=== PATIENT | female | born 1960 | race Caucasian/White ===

== ENCOUNTER → 2023-01-16 | Outpatient (CLI) | payer OTHER | END | disposition home or self-care (01) | LOC: LAB SHORT 14:38 → LAB 14:38 | PROVIDERS: Physician Assistant | DX: G89.4 Chronic pain syndrome (principal) | CPT/HCPCS: G0480 ==

== ENCOUNTER 2023-04-03 09:23 | Day surgery (SDC) | payer OTHER ==
[~2023-04-03] VITALS: Ht 160 cm; Wt 89.5 kg
[2023-04-03] VITALS (21 sets, daily range): BP systolic 138–169; BP diastolic 44–863
[~2023-04-03 09:23] MED LIST: ATEN100 PO; DICL75ER PO; HYDACE10B PO; HYOS.125 SL; NORT75 PO; OMEP20ER PO; PRAV20 PO; SUMA25 PO; VALA500 PO; ZOLP10 PO
[2023-04-03 11:36] LABS: Bun/Creatinine Ratio 23.6 (12.0-20.0); Calcium, Blood 8.7 mg/dL (8.5-10.1); Creatinine, Blood 0.59 mg/dL (0.40-1.00); Potassium, Blood 3.9 mmol/L (3.5-5.5)
--- NOTE | 2023-04-03 19:31 | NUR ---
SHIFT SUMMARY POD0 VAG HYSTER WITH A&P REPAIR, A/OX4, VSS, TOLERATING PO, AMBULATING INDEPENDENTLY IN THE ROOM, MODERATE AMOUNT OF BLOOD ON HER FIRST PEDRO PAD BUT HAS HAD NO DRAINAGE SINCE. NO ACUTE EVENTS THIS SHIFT, CALL LIGHT IN REACH.
[2023-04-03] MEDS ORDERED: ATEN100 PO (19:53)
[2023-04-04 03:25] VITALS: BP 142/66
--- NOTE | 2023-04-04 04:09 | NUR ---
SHIFT SUMMARY NO ACUTE CHANGES. PT COMPLAINS OF LOWER ABD CRAMPING. TORADOL/NORCO + KPAD FOR PAIN MANAGEMENT. SMALL AMOUNT OF VAGINAL BLEEDING ON PEDRO PADS. PT PASSING FLATUS. DC DC'D THIS AM AND AWAITING FIRST SPONTANEOUS VOID. INDEP IN ROOM. VSS. PT USES CALL LIGHT APPROPRIATELY.
[2023-04-04 05:57] LABS: BASOPHILS ABSOLUTE AUTO 0.01 K/mm3 (0.00-0.23); BASOPHILS PERCENT AUTO 0 % (0-2); EOSINOPHILS PERCENT AUTO 0 % (0-6); Hematocrit 36.2 % (33.0-51.0); Hemoglobin 12.4 g/dL (11.5-16.0); IMMATURE GRAN ABSOLUTE AUTO 0.05 K/mm3 (0.00-0.10); IMMATURE GRAN PERCENT AUTO 0 % (0-1); LYMPHOCYTES ABSOLUTE AUTO 1.85 K/mm3 (0.84-5.20); LYMPHOCYTES PERCENT AUTO 16 % (21-46); MONOCYTES ABSOLUTE AUTO 0.65 K/mm3 (0.16-1.47); MONOCYTES PERCENT AUTO 6 % (4-13); Mean Corpuscular HGB 28.9 pg (26.0-34.0); Mean Corpuscular HGB Conc 34.3 g/dL (31.5-36.5); Mean Corpuscular Volume 84 fL (80-100); Mean Platelet Volume 9.1 fL (9.1-12.4); NEUTROPHILS ABSOLUTE AUTO 9.28 K/mm3 (1.96-9.15); NEUTROPHILS PERCENT AUTO 78 % (41-73); Platelet Count 327 K/mm3 (150-400); RDW Standard Deviation 40.1 fL (35.1-46.3); Red Blood Cell Count 4.29 M/mm3 (3.80-5.20); White Blood Cell Count 11.84 K/mm3 (4.00-11.30)
[2023-04-04 07:31] VITALS: BP 137/69
[2023-04-04] MEDS ORDERED: HYDR1TAB94 PO (11:12)
== END 2023-04-04 15:31 | disposition home or self-care (01) ==
LOC: ORSCMMR 09:23 → ORD 11:00 → ORSCMMR 11:00 → SURS 15:14 → ORSCMMR 15:14 → SURS 04-04 15:31
PROVIDERS: Obstetrics & Gynecology
PROC: 0JQC0ZZ Repair Pelvic Region Subcutaneous Tissue and Fascia, Open Approach (ICD-10-PCS; principal; 2023-04-03 11:00)
PROC: 0UT97ZZ Resection of Uterus, Via Natural or Artificial Opening (ICD-10-PCS; principal; 2023-04-03 11:00)
DX: N81.2 Incomplete uterovaginal prolapse (principal); K21.9 Gastro-esophageal reflux disease without esophagitis; Z79.899 Other long term (current) drug therapy; Z68.35 Body mass index [BMI] 35.0-35.9, adult
CPT/HCPCS: 36415; 80048; 85025; 88307; 93005; 93010; A9270; J0171; J0690; J1100; J1885; J2250; J2405; J2704; J2765; J3010; J7120

== ENCOUNTER → 2024-02-15 | Outpatient (CLI) | payer OTHER ==
[~2024-02-15] MED LIST changes: +HYDR1TAB94 PO
[2024-02-21 02:17] LABS: 6-ACETYLMORPHINE, URN, QUANT <10 ng/mL; CODEINE, URN, QUANT <20 ng/mL; HYDROCODONE, URN, QUANT 331 ng/mL; HYDROMORPHONE, URN, QUANT <20 ng/mL; MORPHINE, URN, QUANT <20 ng/mL; NORHYDROCODONE, URN, QUANT 482 ng/mL; NOROXYCODONE, URN, QUANT <20 ng/mL; NOROXYMORPHONE, URN, QUANT <20 ng/mL; OXYCODONE, URN, QUANT <20 ng/mL; OXYMORPHONE, URN, QUANT <20 ng/mL
== END ==
LOC: LAB 17:45 → LAB SHORT 17:45
PROVIDERS: Physician Assistant
DX: Z79.891 Long term (current) use of opiate analgesic (principal)
CPT/HCPCS: G0480

== ENCOUNTER → 2024-06-22 | Outpatient (CLI) | payer OTHER ==
[2024-06-26 20:30] LABS: 6-ACETYLMORPHINE, URN, QUANT <10 ng/mL; CODEINE, URN, QUANT <20 ng/mL; HYDROCODONE, URN, QUANT >4000 ng/mL; HYDROMORPHONE, URN, QUANT 75 ng/mL; MORPHINE, URN, QUANT <20 ng/mL; NORHYDROCODONE, URN, QUANT >4000 ng/mL; NOROXYCODONE, URN, QUANT <20 ng/mL; NOROXYMORPHONE, URN, QUANT <20 ng/mL; OXYCODONE, URN, QUANT <20 ng/mL; OXYMORPHONE, URN, QUANT <20 ng/mL
[2024-06-29 13:11] LABS: 11-NOR-9-CARBOXY-THC,URN,QUANT <15 ng/mL
== END | disposition home or self-care (01) ==
LOC: LAB SHORT 19:14 → LAB 19:14
PROVIDERS: Physician Assistant
DX: Z51.81 Encounter for therapeutic drug level monitoring (principal); Z79.891 Long term (current) use of opiate analgesic
CPT/HCPCS: G0480

== ENCOUNTER 2024-12-30 07:11 | Day surgery (SDC) | payer OTHER ==
[2024-12-17 15:21] VITALS: BP 143/78
[~2024-12-30] VITALS: Ht 160 cm; Wt 91.0 kg
[2024-12-30] VITALS (15 sets, daily range): BP systolic 112–164; BP diastolic 58–92
[~2024-12-30 07:11] MED LIST changes: +ACYC800 PO; +CeFAZolin Sodium 2,000 MG VIAL ONE; +CeFAZolin Sodium 2,000 MG in NS 100 ML IV SCH; +Chlorhexidine Mouth Care 15 ML UDC MT SCH; -HYDR1TAB94 PO; +IMITREX50 MG PO; +Norco 10-325 T1 EACH PO; +Oxybutynin Chlo10 MG PO; +PRAVASTATIN SOD40 MG PO; +ROSUVASTATIN CA20 MG PO; +Ropivacaine 0.5% HCl/Pf 123.125 MG,EPINEPHrine HCL 0.25 MG,Ketorolac Tromethamine 15 MG... INFIL SCH; -SUMA25 PO; +Tranexamic Acid 100 ML IV SCH
[2024-12-30] MEDS ORDERED: Mepivacaine MPF 2% Inj 20 ML Vial ONE (07:41)
[2024-12-30] MEDS ORDERED: Midazolam HCl 1MG / ML 2ML Vial ONE (07:42)
[2024-12-30] MEDS ORDERED: Ondansetron HCl 2 MG / ML 2ML Vial IV PRN ×2 (08:15→08:30)
[2024-12-30] MEDS ORDERED: FLU VACC TS2025-26(6MOS UP)/PF 45 MCG/0.5 ML SYRINGE IM SCH (08:20)
[2024-12-30] MEDS ORDERED: Metoclopramide HCl 5MG / ML 2ML Vial IV PRN (08:20)
[2024-12-30] MEDS ORDERED: Magnesium Hydroxide Conc 10 ML UDC PO PRN (08:20)
[2024-12-30] MEDS ORDERED: HYDROmorphone HCl/Pf 1MG SYR IV PRN ×3 (08:20→08:30)
[2024-12-30] MEDS ORDERED: Labetalol HCL 5 MG/ML 4ML Injection (Single Dose) IV PRN (08:30)
[2024-12-30] MEDS ORDERED: FentaNYL Citrate 50 MCG/ML 2 ML Injection IV PRN ×2 (08:30)
[2024-12-30] MEDS ORDERED: Phenylephrine HCl 100 MCG/ML-NS 10MLSYR (1MG/10ML) ONE (09:31)
[2024-12-30] MEDS ORDERED: ePHEDrine Sulfate 50 MG/ML 1ML Injection ONE (09:52)
[2024-12-30] MEDS ORDERED: Ondansetron HCl 2 MG / ML 2ML Vial ONE (10:49)
[2024-12-30] MEDS ORDERED: FentaNYL Citrate 50 MCG/ML 2 ML Injection ONE (11:39)
[2024-12-30] MEDS ORDERED: HYDROmorphone HCl/Pf 1MG SYR ONE ×2 (11:39→11:53)
[2024-12-30] MEDS ORDERED: Ketorolac Tromethamine 30mg Vial ONE (11:53)
[2024-12-30] MEDS ORDERED: Ketorolac Tromethamine 15mg Vial IV SCH (12:00)
--- NOTE | 2024-12-30 13:15 | NUR ---
ARRIVAL TO SURG FLOOR ARRIVED TO FLOOR VIA HOSP BED AT 1245. A&O x4, VSS, HRR, LUNGS CLEAR. R KNEE w/PRINEO DRESSING & LEYLA WRAP, C/D/I. ABLE TO WIGGLE TOES & MOVE LEGS. STATES SEVERE PAIN, MEDICATED ON PER EMAR. ON 2L O2 NC w/SATS >93%. AWAITING POST OP VOID. SNACKS & DRINKS GIVEN. FAMILY AT BEDSIDE. CALL LIGHT WITHIN REACH.
[2024-12-30] MEDS ORDERED: ACET500 PO (14:07)
[2024-12-30] MEDS ORDERED: ASPI81CH PO (14:08)
[2024-12-30] MEDS ORDERED: DOCU100 PO (14:08)
[2024-12-30] MEDS ORDERED: OXYC5 PO (14:09)
--- NOTE | 2024-12-30 17:24 | NUR ---
SHIFT SUMMARY ADMITTED ON 12/30 FOR R TKA. A&O x4, VSS, HRR, LUNGS CLEAR. R KNEE w/TEFLA & TEGADERM. SMALL AMOUNT OF SHADOWING NOTED. TITRATED TO ROOM AIR. TOLERATING FOOD & FLUIDS WELL. UP TO CHAIR w/1 PERSON ASSIST. VOIDED SUCCESSFULLY. PAIN CONTROLLED WELL PER EMAR. CURRENTLY RESTING IN BEDC. CALL LIGHT WITHIN REACH.
[2024-12-30] MEDS ORDERED: CeFAZolin Sodium 2,000 MG in NS 100 ML IV SCH (17:30)
[2024-12-31] VITALS: BP 147/69
--- NOTE | 2024-12-31 04:53 | NUR ---
SHIFT SUMMARY FRIEDA WAS ALERT AND FULLY ORIENTED ON ASSESSMENT. PT PAIN WELL CONTROLLED. CIRCULATION VERIFIED BLE, SENSATION HAS RETURNED TO BASELINE. INSCISION DRESSING C/D/I. PT AMBULATING/ VOIDING APPROPRIATELY. PT DENIES SOB, CHEST PAIN, OR NAUSEA. NO ACUTE EVENTS TONIGHT.
[2024-12-31 04:57] VITALS: BP 163/79
[2024-12-31 05:12] LABS: BASOPHILS ABSOLUTE AUTO 0.01 K/mm3 (0.00-0.23); BASOPHILS PERCENT AUTO 0 % (0-2); EOSINOPHILS ABSOLUTE AUTO 0.00 K/mm3 (0.00-0.68); EOSINOPHILS PERCENT AUTO 0 % (0-6); Hematocrit 30.8 % (33.0-51.0); Hemoglobin 10.6 g/dL (11.5-16.0); IMMATURE GRAN ABSOLUTE AUTO 0.05 K/mm3 (0.00-0.10); IMMATURE GRAN PERCENT AUTO 0 % (0-1); LYMPHOCYTES ABSOLUTE AUTO 0.75 K/mm3 (0.84-5.20); LYMPHOCYTES PERCENT AUTO 6 % (21-46); MONOCYTES ABSOLUTE AUTO 0.66 K/mm3 (0.16-1.47); MONOCYTES PERCENT AUTO 6 % (4-13); Mean Corpuscular HGB Conc 34.4 g/dL (31.5-36.5); Mean Corpuscular Volume 85 fL (80-100); NEUTROPHILS ABSOLUTE AUTO 10.23 K/mm3 (1.96-9.15); NEUTROPHILS PERCENT AUTO 88 % (41-73); NRBC ABSOLUTE 0.00 K/mm3 (0.00-0.02); NRBC Auto 0.0 /100 WBC (0.0-0.2); Platelet Count 218 K/mm3 (150-400); RDW Coefficient Variation 13.5 % (11.7-14.2); RDW Standard Deviation 42.5 fL (35.1-46.3)
[2024-12-31 05:29] LABS: Anion Gap 7.0 mmol/L (3-11); Blood Urea Nitrogen 11.0 mg/dL (8-24); CO2, Blood 29.0 mmol/L (21-32); Calcium, Blood 8.8 mg/dL (8.5-10.1); Chloride, Blood 103.0 mmol/L (98-108); Creatinine, Blood 0.51 mg/dL (0.40-1.00); Glucose, Blood 166.0 mg/dL (70-99); Magnesium, Blood 2.2 mg/dL (1.6-2.4); Potassium, Blood 3.9 mmol/L (3.5-5.5); Sodium, Blood 135.0 mmol/L (136-145)
[2024-12-31 07:23] VITALS: BP 155/88
--- NOTE | 2024-12-31 08:50 | NUR ---
DISCHARGE INSTRUCTION REVIEWED. STATED UNDERSTANDING. AWAITING RIDE FOR DISCHARGE.
--- NOTE | 2024-12-31 09:29 | NUR ---
DISCHARGED TO POV WITH PRINTED INSTRUCT ACCOMPANIED BY FAMILY. STATED UNDERSTANDING AT DISCHARGE.
== END 2024-12-31 09:33 | disposition home or self-care (01) ==
LOC: ORSCMMR 07:11 → ORD 08:30 → SURS 12:55 → ORSCMMR 12-31 09:33
PROVIDERS: Orthopaedic Surgery
DX: M17.11 Unilateral primary osteoarthritis, right knee (principal); I10 Essential (primary) hypertension; K21.9 Gastro-esophageal reflux disease without esophagitis; Z79.899 Other long term (current) drug therapy
CPT/HCPCS: 27447; 0055T; 36415; 73560-RT; 80048; 83735; 85025; 97110; 97116; 97161; 97530; A9270; C1713; C1776; J0166; J0670; J0690; J0735; J1171; J1885; J2250; J2371; J2405; J2704; J2795; J3010; J7120